=== PATIENT | male | born 2000 | race Two or more races ===

== ENCOUNTER 2021-02-14 21:16 | Emergency (ER) | payer OTHER ==
--- NOTE | 2021-02-15 00:08 | ED Physician Documentation ---
PD HPI HEENT - Stated complaint Stated Complaint: NOSE INJ - Chief complaint Chief Complaint: Heent - History obtained from History obtained from: Patient - History of Present Illness Timing - onset: How many hours ago (1), Today Timing - details: Abrupt onset (struck unintentionally with elbow while playing in soccer game. Ivan and swelligt onose with brief nosebleed.) Associated symptoms: Congestion, Facial swelling (nasal bridge and right medial cheek). No: Fever, Swollen nodes Review of Systems Constitutional: denies: Fever Nose: reports: Epistaxis (for few minutes after injury). denies: Rhinorrhea / runny nose Skin: denies: Abrasion (s), Laceration (s) Neurologic: denies: Focal weakness, Numbness, Confused, Altered mental status PD PAST MEDICAL HISTORY - Past Medical History Past Medical History: No Cardiovascular: None Respiratory: None Neuro: None Endocrine/Autoimmune: None GI: None : None HEENT: None Psych: None Musculoskeletal: None Derm: None - Past Surgical History Past Surgical History: No - Allergies Allergies/Adverse Reactions: Allergies Allergy/AdvReac Type Severity Reaction Status Date / Time No Known Drug Allergies Allergy Verified 02/14/21 21:23 - Social History Does the pt smoke?: No Smoking Status: Never smoker Does the pt drink ETOH?: No Does the pt have substance abuse?: No - Immunizations Immunizations are current?: Yes - POLST Patient has POLST: No PD ED PE NORMAL - Vitals Vital signs reviewed: Yes - General General: Alert and oriented X 3, No acute distress, Well developed/nourished, Other (nasal bridge midline. Nasal bones tender without obvious deformity. There is swelling right side more than left on sides of nose. Right side goes to medial cheeck.) - HEENT HEENT: Other (nasal passages without notable swelling nor hematoma.) - Neck Neck: Supple, no meningeal sign, No bony TTP - Neuro Neuro: Alert and oriented X 3, development writer 2-12 intact, No motor deficit, Normal speech Results - Vitals Vitals: Oxygen O2 Source Room air - Rads (name of study) [facility] Radiology: Prelim report reviewed (nasal bone fractures, nondisplaced.), See rad report PD MEDICAL DECISION MAKING - ED course Complexity details: reviewed results, considered differential, d/w patient Departure - Departure Disposition: 01 Home, Self Care Clinical Impression: Nasal bone fractures Qualifiers: Encounter type: initial encounter Fracture type: closed Qualified Code(s): S02.2XXA - Fracture of nasal bones, initial encounter for closed fracture Condition: Stable Record reviewed to determine appropriate education?: Yes Instructions: ED Fx Nasal Conf W X Ray Follow-Up: [facility] [Provider Group] [facility] [Provider Group] Comments: The CT scan shows fractures of the nasal bone. However they do not look displaced. I think the asymmetry of your nose is from uneven swelling rather than displacement of the fractures. Typically the ENT specialist do not do anything with broken noses unless there is a persistent deformity, abnormal airflow through the nostrils after time for the swelling to go down which is a week or 2 after injury. See how well your nose is looking and functioning. If there is any abnormality after a week or 2, call and follow-up with the medical health researcher. Otherwise the bones should heal in place and mostly are just tender so avoid things like goggles on the bridge of the nose for the next week or so. Tylenol or ibuprofen if needed for pains. Ice to the area for swelling tonight and tomorrow often. You can use some saline nasal spray to cleanse the nostrils. Try to avoid hard nose blowing for a few days so as the bleeding does not start up again. Forms: Activity restrictions Discharge Date/Time: 02/15/21 02:00
[2021-02-15] MEDS ORDERED: IBUPROFEN 600 MG TABLET PO STA (00:24)
[2021-02-15 01:06] VITALS: BP 132/84
--- NOTE | 2021-02-15 07:20 | CT Report ---
PROCEDURE: MAXILLOFACIAL WO INDICATIONS: struck nose; looks crooked TECHNIQUE: Noncontrast 1.5 mm thick axial images acquired from the mandible through the frontal sinuses, with co matt and sagittal reformatting. For radiation dose reduction, the following was used: automated ex posure control, adjustment of mA and/or kV according to patient size. COMPARISON: None. FINDINGS: Image quality: Excellent. Bones and teeth: Orbital mckeon are intact. Sinus mckeon show no fracture or deformity. Mother displa hina bilateral nasal bone fractures. The nasal septum is intact. Visualized portions of the mandible demonstrate no fractures or subluxation. Zygomatic arches are intact. Pterygoid plates are intact. Visualized portions of the skull base and auditory canals are intact. Sinuses: Paranasal sinuses are aerated, without fluid levels, mucosal thickening, or mucoceles. Mas toid air cells are aerated. Soft tissues: No soft tissue swelling noted adjacent to nasal bone fractures. No enlarged lymph nodes . No soft tissue lacerations or debris. Vascular: Visualized vascular structures appear normal in the absence of contrast. Bony vascular fo ramina and canals are intact. IMPRESSION: Bilateral nasal bone fractures. Reviewed by: Lynn Blancas MD, PhD on 02/15/2021 7:18 AM PDT Approved by: Lynn Blancas MD, PhD on 02/15/2021 7:18 AM PDT Station ID: [id number]
== END 2021-02-15 02:00 | disposition home or self-care (01) ==
LOC: ED 21:16
DX: S02.2XXA Fracture of nasal bones, initial encounter for closed fracture (principal); W50.0XXA Accidental hit or strike by another person, initial encounter; Y93.66 Activity, soccer
CPT/HCPCS: 70486; 99282; 99284; A9270